=== PATIENT | female | born 1935 | race Caucasian/White ===

== ENCOUNTER → 2016-04-21 | Outpatient (CLI) | payer MEDICARE ==
[~2016-04-21] MED LIST: ALPR0.5T PO; ASPI-875 PO; ATOR20TA66 PO; ATRV10T PO; CEPH500C PO; DULO30CA PO; EST45C VG; ESTR42.52 VG; HYDR-1435 PO; LOSA1TAB15 PO; MTF500T PO; MTP25TSR PO; MULT-974 PO; NAPR220T76 PO; SULF1TAB38 PO
--- OUTSIDE RECORDS SUMMARY | 2016-04-21 13:47 | XMS REPORT | Continuity of Care Document ---
Author Author [facility] Organization [facility] Address Unknown Phone Unavailable Care Team Providers Care Numberer And Wirer Name Role Phone HALLEY WALKER MD PCP Insurance Providers Payer Name Policy Number Subscriber Name Relationship [employer] Medicare [id number] Leah Banerjee 18 Self / Same As Patient [employer] [facility] Supp [id number] Leah Banerjee 18 Self / Same As Patient Advance Directives Directive Response Recorded Date/Time Advance Directives No 06/27/14 7:29am Health Care Power of Curing Room Worker No 06/27/14 7:29am Organ Donor No 06/27/14 7:29am Resuscitation Status Full Code 06/27/14 7:29am Problems Medical Problems Problem Onset Date Status Contusion of back Unknown Active Contusion of chest Unknown Active Lumbar sprain Unknown Active Medications Medication Dose Route Sig Days/Qty Instructions Order Date Discontinued Date Status Trimethoprim/Sulfamethoxazole 1 Ea PO TWICE A DAY 14 Qty 03/12/13 Discontinued Cephalexin Monohydrate (Keflex) 500 Mg PO FOUR TIMES DAILY 7 Days 03/1907/03/13 Discontinued Duloxetine HCl 30 Mg PO TWICE A DAY 07/03/13 Active Estradiol 0.5 Gm VG TWICE WEEKLY 07/03/13 Active Losartan/Hydrochlorothiazide 1 Tab PO DAILY 100-25MG TABLET 07/03/13 Active Estrogens Conjugated 0.5 Gm VG TWICE WEEKLY 07/03/13 Active Metoprolol Succinate 25 Mg PO DAILY 07/03/13 Active Naproxen Sodium 220 Mg PO DAILY 07/03/13 Active Atorvastatin Calcium 10 Mg PO BEDTIME 07/03/13 07/03/13 Discontinued Multivitamin 1 Tab PO DAILY 07/03/13 Active Alprazolam 0.5 Mg PO TWICE A DAY PRN ANXIETY 07/03/13 Active Hydrocodone Bit/Acetaminophen 1-2 Tab PO EVERY 8HRS PRN PAIN NEEDED FOR PAIN 07/03/13 Active Aspirin 162 Mg PO DAILY 07/03/13 Active Metformin HCl (Glucophage) 500 Mg PO TWICE A DAY WITH MEALS 07/03/13 Active Atorvastatin Calcium 10 Mg PO BEDTIME TAKES 1/2 (20MG) TABLET 07/03/13 Active Social History Social History Problem Response Recorded Date/Time Alcohol Use Denies Use 03/12/2013 4:54pm Recreational Drug Use No 03/12/2013 4:54pm Recent Foreign Travel No 06/27/2014 7:29am Hospital Discharge Instructions No hospital discharge instructions. Plan of Care No plan of care. Functional Status No functional status results. Allergies, Adverse Reactions, Alerts Allergen Type Severity Reaction Status Last Updated No Known Drug Allergies Active 03/12/13 Immunizations Name Given Type Date of Pneumonia Vaccine 07/03/09 Historical Date of Influenza Vaccine 12/11/12 Historical Vital Signs Acute Vital Signs Vital Response Date/Time Temperature (Fahrenheit) 97.9 degrees F (97.6 - 99.5) Temperature (Calculated Celsius) 36.82233 degrees C (36.4 - 37.5) Temperature Source Tympanic Pulse Rate (adult) 77 bpm (60 - 90) Respiratory Rate 20 bpm (12 - 24) O2 Sat by Pulse Oximetry 94 % (88 - 100) Blood Pressure 133/75 mm Hg Pain Pain Intensity 3 Height (Feet) 5 feet Height (Inches) 5.00 inches Height (Calculated Centimeters) 165.069352 cm Weight (Pounds) 205 pounds Weight (Calculated Grams) 19795.437 gm Weight (Calculated Kilograms) 92.871149 kilograms Calculated BMI 34.11 Results No known relevant diagnostic tests, laboratory data and/or discharge summary. Procedures No known history of procedures. Encounters Encounter Location Date/Time Registered Clinic [facility] 06/27/14 7:16am Registered Clinic [facility] 06/20/14 7:12am
--- NOTE | 2016-04-21 19:16 | Diagnostic Imaging Report ---
EXAMINATION: Right breast ultrasound. INDICATION: Pain in the right axilla. FINDINGS: The area of pain was scanned with surrounding tissue with no underlying abnormality seen. IMPRESSION: Negative study. Clinical followup recommended. ACR BI-RADS Category 1: Negative. Result letter will be mailed to the patient. Note: At least 10% of breast cancer is not imaged by mammography. Dictated by: Dictated on workstation # [id number]
== END ==
LOC: RAD 13:44
PROVIDERS: ATTEND Internal Medicine
DX: N64.4 Mastodynia (principal)

== ENCOUNTER → 2016-08-31 | Outpatient (CLI) | payer MEDICARE | LOC: CARD 10:03 | PROVIDERS: ATTEND Physician Assistant | DX: I25.10 Atherosclerotic heart disease of native coronary artery without angina pectoris (principal); E78.2 Mixed hyperlipidemia; I10 Essential (primary) hypertension; R00.2 Palpitations | CPT/HCPCS: 93306 ==

== ENCOUNTER → 2017-01-23 | Outpatient (CLI) | payer MEDICARE ==
--- NOTE | 2017-01-24 10:52 | Diagnostic Imaging Report ---
Bilateral screening mammogram 2D views with tomosynthesis The current study was also evaluated with a Computer Aided Detection (CAD) system. INDICATION: Screening. No current complaints stated on the questionnaire. COMPARISON: 01/22/16. FINDINGS: The breasts are composed of heterogeneously dense parenchyma which may decrease mammographic sensitivity. Benign-appearing calcifications are seen. Allowing for technique and positional differences, no suspicious change is seen. IMPRESSION: Dense breasts with no definite change. ACR BI-RADS Category 2: Benign findings. Result letter will be mailed to the patient. Note: At least 10% of breast cancer is not imaged by mammography. Dictated by: Dictated on workstation # [id number]
== END ==
LOC: RAD 09:31
PROVIDERS: ATTEND Internal Medicine
DX: Z12.31 Encounter for screening mammogram for malignant neoplasm of breast (principal)
CPT/HCPCS: 77067

== ENCOUNTER → 2017-10-11 | Outpatient (CLI) | payer MEDICARE ==
[~2017-10-11] MED LIST changes: +REGADENOSON 0.4 MG/5 ML SYR (LEXISCAN) IV ONE
[2017-10-11] MEDS: CATHETER FLUSH 10 ML SYR IV PRN ×2 (11:33→13:12)
[2017-10-11 13:06] VITALS: BP 154/77
--- NOTE | 2017-10-11 18:38 | STRESS TEST ---
DATE OF SERVICE: 10/11/2017 LEXISCAN MYOVIEW STRESS TEST REPORT Baseline heart rate is 68. Baseline blood pressure 154/77. Baseline EKG is sinus rhythm with no ischemic changes. SUMMARY: The patient was injected with 10.27 mCi of technetium-99 Myoview and the resting images were obtained. Then, the patient received 0.4 mg of Lexiscan followed by 28.9 mCi of technetium-99 Myoview. Throughout the test, there were no EKG changes. The resting and stress images were reviewed and compared in the short axis, horizontal long axis, and vertical long axis views. Review of the images showed good radiotracer uptake with no ischemia or infarction on SPECT images. SSS is 0, TID value is 1.03, probably abnormally elevated due to the small left ventricle. On the gated images, the left ventricle appeared to be small in size with normal contractility. Calculated ejection fraction 83%. CONCLUSION: 1. The patient tolerated Lexiscan well. 2. No ischemia or infarction on SPECT images. 3. Small left ventricle with normal contractility. Calculated ejection fraction 83%. Job ID: [id number] DocumentID: [id number] Dictated Date: 10/11/2017 15:49:22 Ampoule Inspector Date: 10/11/2017 18:38:24 Dictated By: TAMIA RICO MD
== END ==
LOC: CARD 11:06
PROVIDERS: ATTEND Internal Medicine Cardiovascular Disease
DX: I25.10 Atherosclerotic heart disease of native coronary artery without angina pectoris (principal); R07.89 Other chest pain; E78.5 Hyperlipidemia, unspecified; R00.2 Palpitations; E11.9 Type 2 diabetes mellitus without complications
CPT/HCPCS: 78452; 93017

== ENCOUNTER → 2018-03-28 | Outpatient (CLI) | payer MEDICARE ==
[~2018-03-28] MED LIST changes: -REGADENOSON 0.4 MG/5 ML SYR (LEXISCAN) IV ONE
--- NOTE | 2018-03-28 15:45 | Diagnostic Imaging Report ---
INDICATION: Chronic neck pain. COMPARISON: None. FINDINGS: Three views of the cervical column demonstrate normal alignment. There is no subluxation or fracture. [id number] degenerative change seen throughout the disc spaces and facet joints. There is no osseous lesion. IMPRESSION: [id number] diffuse degenerative changes. Dictated by: Dictated on workstation # [id number]
--- NOTE | 2018-03-28 15:50 | Diagnostic Imaging Report ---
INDICATION: Chronic back and hip pain. COMPARISON: None. FINDINGS: Three views of the sacrum and coccyx demonstrate normal alignment. There is no osseous lesion or fracture. SI joints are symmetric. IMPRESSION: Unremarkable sacrum and coccyx. Dictated by: Dictated on workstation # [id number]
--- NOTE | 2018-03-28 15:52 | Diagnostic Imaging Report ---
INDICATION: Mid back pain. COMPARISON: None. FINDINGS: Three views of the thoracic column demonstrate normal alignment. There is no subluxation or fracture. Minimal to mild diffuse degenerative disc disease is present. 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 There is no osseous lesion. IMPRESSION: Minimal to mild diffuse degenerative changes. Dictated by: Dictated on workstation # [id number]
--- NOTE | 2018-03-28 15:53 | Diagnostic Imaging Report ---
INDICATION: Low back pain. COMPARISON: None. FINDINGS: Three views of the lumbar column demonstrate normal alignment. There is no subluxation or fracture. Mild degenerative changes are seen throughout the disc spaces and facet joints. There is no osseous lesion. IMPRESSION: Mild diffuse degenerative changes. Dictated by: Dictated on workstation # [id number]
== END ==
LOC: RAD 11:18
PROVIDERS: ATTEND Nurse Practitioner
DX: M47.816 Spondylosis without myelopathy or radiculopathy, lumbar region (principal); M54.2 Cervicalgia; M53.3 Sacrococcygeal disorders, not elsewhere classified; M54.6 Pain in thoracic spine
CPT/HCPCS: 72040; 72072; 72100; 72220

== ENCOUNTER → 2018-11-22 | Outpatient (CLI) | payer MEDICARE | LOC: CARD 13:27 | PROVIDERS: ATTEND Internal Medicine Cardiovascular Disease | DX: I27.20 Pulmonary hypertension, unspecified (principal); G89.4 Chronic pain syndrome; I25.10 Atherosclerotic heart disease of native coronary artery without angina pectoris; E11.9 Type 2 diabetes mellitus without complications; I10 Essential (primary) hypertension; E78.5 Hyperlipidemia, unspecified | CPT/HCPCS: 93306 ==

== ENCOUNTER → 2019-05-24 | Outpatient (CLI) | payer MEDICARE ==
--- NOTE | 2019-05-24 09:58 | Diagnostic Imaging Report ---
INDICATION: Routine screening. COMPARISON: 04/02/2018 and 01/23/2017. TECHNIQUE: 2D and 3D bilateral screening mammography was performed with CAD. FINDINGS: Both breasts remain heterogeneously dense, limiting the sensitivity of mammography. Benign calcifications are identified in both breasts. The intraparenchymal lymph node in the upper outer right breast is again noted. No spiculated mass or malignant appearing microcalcifications are seen. The axillae are unremarkable. IMPRESSION: No mammographic features suspicious for malignancy are identified. ACR BI-RADS Category 2: Benign findings. Result letter will be mailed to the patient. Note: At least 10% of breast cancer is not imaged by mammography. Dictated by: Dictated on workstation # [id number]
== END ==
LOC: RAD 08:16
PROVIDERS: ATTEND Nurse Practitioner
DX: Z12.31 Encounter for screening mammogram for malignant neoplasm of breast (principal)
CPT/HCPCS: 77067

== ENCOUNTER → 2021-08-02 | Outpatient (CLI) | payer MEDICARE ==
--- NOTE | 2021-08-02 10:31 | Diagnostic Imaging Report ---
KNEE, RIGHT, 3 VIEWS INDICATION: Right knee pain COMPARISON: None available. TECHNIQUE: 3 views of the right knee FINDINGS: Tricompartmental degenerative arthritis is characterized by osteophyte formation and nonuniform joint space narrowing. No knee joint effusion. No acute fracture. No mineralized intra-articular bodies. IMPRESSION: 1. No acute osseous abnormality about the right knee. 2. Moderate tricompartmental osteoarthritis. Dictated by: Dictated on workstation # [id number]
--- NOTE | 2021-08-02 10:34 | Diagnostic Imaging Report ---
PROCEDURE: CT head and maxillofacial without contrast. TECHNIQUE: Multiple contiguous axial images were obtained through the head and facial bones without the use of intravenous contrast. Auto Exposure Controls were utilized during the CT exam to meet ALARA standards for radiation dose reduction. INDICATION: Fall. Facial pain and bruising. COMPARISON: 03/12/2013. FINDINGS: A few small patchy regions of hypoattenuation in the deep white matter likely reflective of sequela of microvascular disease. There are no findings of territorial loss of velasquez-white differentiation or vasogenic edema. There is no acute intracranial hemorrhage. There is no intracranial mass effect or shift. There is no hydrocephalus. There is no abnormal extra-axial collection. Basal cisterns are patent. The mastoid air cells are clear. There are no findings of a calvarial fracture. The CT of the face demonstrates no evidence of a fracture of the bony orbit. The intraorbital contents are unremarkable. There has been prior ocular lens replacement. Some slight irregularity of the nasal bones which may reflect a nondisplaced nasal bone fracture. There appears to be some minimal adjacent soft tissue swelling. There is no blood within the paranasal sinuses. There are no findings of a fracture of the maxilla. Zygomatic arches are intact. There is no fracture of the pterygoids. There are arthritic changes at the temporal mandibular joints. There is no TMJ dislocation or acute mandibular fracture. The visualized portion of the upper cervical spine demonstrates normal alignment with normal relationships of the craniocervical junction. IMPRESSION: 1. No CT findings of intracranial hemorrhage or of an acute intracranial abnormality. There appear to be some minimal microvascular changes in the deep white matter. 2. Questionable nondisplaced fracture/buckling of the nasal bones. No other evidence of a facial fracture demonstrated. The orbital contents are unremarkable. There is no blood within the paranasal sinuses. Dictated by: Dictated on workstation # [id number]
== END ==
LOC: RAD 09:47
PROVIDERS: ATTEND Internal Medicine
DX: M25.861 Other specified joint disorders, right knee (principal); W19.XXXA Unspecified fall, initial encounter
CPT/HCPCS: 70450; 70486; 73562

== ENCOUNTER → 2021-08-05 | Outpatient (CLI) | payer MEDICARE ==
--- NOTE | 2021-08-05 15:29 | Diagnostic Imaging Report ---
INDICATION: Routine screening. COMPARISON is made with prior mammograms from 05/24/2019 and 04/02/2018. 2-D and 3-D bilateral screening mammography was performed with CAD. Both breasts are heterogeneously dense, limiting the sensitivity of mammography. The parenchymal pattern is stable. No mass or malignant-appearing microcalcifications are seen. There are scattered benign calcifications in both breasts. Axillae are unremarkable. IMPRESSION: BI-RADS Category 2 No mammographic features suspicious for malignancy are identified. Dictated by: Dictated on workstation # [id number]
== END ==
LOC: RAD 10:08
PROVIDERS: ATTEND Nurse Practitioner Family
DX: Z12.31 Encounter for screening mammogram for malignant neoplasm of breast (principal)
CPT/HCPCS: 77063; 77067

== ENCOUNTER 2021-11-02 14:20 | Emergency (ER) | payer MEDICARE ==
[~2021-11-02] VITALS: Ht 165 cm; Wt 95.0 kg
[2021-11-02 15:05] LABS: BASOPHILS % (AUTO) 0 % (0-10); EOSINOPHILS # (AUTO) 0.2 10^3/uL (0.0-0.3); EOSINOPHILS % (AUTO) 2 % (0-10); HEMATOCRIT 40 % (35-52); LYMPHOCYTES % (AUTO) 23 % (12-44); MEAN CORPUSCULAR HEMOGLOBIN 32 pg (25-34); MEAN CORPUSCULAR HGB CONC 33 g/dL (32-36); MEAN CORPUSCULAR VOLUME 97 fL (80-99); MEAN PLATELET VOLUME 9.9 fL (9.0-12.2); MONOCYTES # (AUTO) 0.7 10^3/uL (0.0-1.0); MONOCYTES % (AUTO) 8 % (0-12); NEUTROPHILS # (AUTO) 5.6 10^3/uL (1.8-7.8); NEUTROPHILS % (AUTO) 66 % (42-75); PLATELET COUNT 230 10^3/uL (130-400); WHITE BLOOD COUNT 8.5 10^3/uL (4.3-11.0)
--- NOTE | 2021-11-02 15:05 | ED General ---
General Chief Complaint: General Problems/Pain Stated Complaint: PCP SENT REQUESTING BLOODWORK THROUGH ER Nursing Triage Note: PT STATES SHE HAS NOT BEEN FEELING WELL FOR ABOUT 2 WEEKS, NEG COVID TEST ABOUT 10 DAYS AGO, HIGH LACTIC ACID 2-3 DAYS AGO SO PT WAS SENT TO THE ER. PT FELL OUT OF BED 2-3 DAYS AGO, DENIES GETTING HURT JUST COULDN'T GET UP Source of Information: Patient, Family (Daughter) Exam Limitations: No Limitations (JOSE WILDE) History of Present Illness Date Seen by Provider: Nov 02, 2021 Time Seen by Provider: 14:40 Initial Comments Patient ER by private conveyance from home with chief complaint that for at least the last 2 weeks she has not been feeling well. She is had fatigue, malaise. She is not had any fevers or chills. She had a couple days with nausea and a couple episodes of diarrhea. She has had a negative COVID test 10 days ago. She does not recall what all was done but she had some labs done yesterday in the clinic at Dr. Walker's office and was told she needed to come in today because her lactate was high. The note that accompanies her mentions that she was here in follow-up yesterday because she was having generalized not feeling well. She had been put on Augmentin on the Monday for an elevated white blood cell count. On Monday night she reportedly fell out of bed while trying to go to the bathroom. She denies striking her head and reports no pain at that time. She states that her legs just gave out. Her vitals yesterday were 97.7 Fahrenheit, 83 heart rate, 120/60 blood pressure, 95% on room air. Yesterday the plan as documented was to repeat CBC, CMP and continue to encourage oral fluids and continue with the Augmentin. We will determine whether the patient needs IV fluids or change in medications. (JOSE WILDE) Allergies and Home Medications Allergies Coded Allergies: No Known Drug Allergies (Unverified , 03/12/13) Patient Home Medication List Home Medication List Reviewed: Yes (JOSE WILDE) Alprazolam (Xanax) 0.5 Mg Tablet, 0.5 MG PO BID PRN for ANXIETY, (Reported) Entered as Reported by: NUZHAT DAWSON on 07/03/13 1042 Aspirin (Nason Aspirin) 81 Mg Tablet.dr, 162 MG PO DAILY, (Reported) Entered as Reported by: NUZHAT DAWSON on 07/03/13 104 Atorvastatin Calcium (Atorvastatin Calcium) 20 Mg Tablet, 10 MG PO HS, (Reported) Entered as Reported by: NUZHAT DAWSON on 07/03/13 105 Duloxetine Hcl (Cymbalta) 30 Mg Capsule.dr, 30 MG PO BID, (Reported) Entered as Reported by: NUZHAT DAWSON on 07/03/13 104 Estradiol (Estrace Vaginal Cream) 42.5 Gm Cream.appl, 0.5 GM VG TWICE WEEKLY, (Reported) Entered as Reported by: NUZHAT DAWSON on 07/03/13 104 Estrogens Conjugated (Premarin Vag Cream) 45 Gm Cr, 0.5 GM VG TWICE WEEKLY, (Reported) Entered as Reported by: NUZHAT DAWSON on 07/03/13 104 Hydrocodone Bit/Acetaminophen (Hydrocodone-Apap 10-325 Mg Tab) 1 Tab Tablet, 1-2 TAB PO Q8H PRN for PAIN, (Reported) Entered as Reported by: NUZHAT DAWSON on 07/03/13 104 Losartan/Hydrochlorothiazide (Hyzaar 100-25 Tablet) 1 Tab Tablet, 1 TAB PO DAILY, (Reported) Entered as Reported by: NUZHAT DAWSON on 07/03/13 104 Metformin Hcl (Metformin 500 Mg) 500 Mg Tablet, 500 MG PO BID WITH MEALS, (Reported) Entered as Reported by: NUZHAT DAWSON on 07/03/13 104 Metoprolol Succinate (Toprol Xl 25MG) 25 Mg Tab.sr.24h, 25 MG PO DAILY, (Reported) Entered as Reported by: NUZHAT DAWSON on 07/03/13 104 Multivitamin (Multi Vitamin Daily) 1 Each Tablet, 1 TAB PO DAILY, (Reported) Entered as Reported by: NUZHAT DAWSON on 07/03/13 104 Naproxen Sodium (Aleve) 220 Mg Tablet, 220 MG PO DAILY, (Reported) Entered as Reported by: NUZHAT DAWSON on 07/03/13 104 Review of Systems Review of Systems Constitutional: No chills, No diaphoresis EENTM: No ear discharge, No ear pain Respiratory: No cough, No short of breath Cardiovascular: No chest pain, No edema Gastrointestinal: see HPI; No abdominal pain, No constipation; diarrhea, nausea Genitourinary: No discharge, No dysuria Musculoskeletal: No back pain, No joint pain (JOSE WILDE) All Other Systems Reviewed Negative Unless Noted: Yes (JOSE WILDE) Past Hwdcsyo-Tqtlsr-Nrmvqm Hx Patient Social History Tobacco Use?: No Use of E-Cig and/or Vaping dev: No Substance use?: No Alcohol Use?: No (JOSE WILDE) Immunizations Up To Date COVID19 Vaccine 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 oz. 92.851259nl; 34.00 BMI Method:Estimated General Appearance: No Apparent Distress, WD/WN Eyes: Bilateral Eye Normal Inspection, Bilateral Eye PERRL, Bilateral Eye EOMI HEENT: PERRL/EOMI, TMs Normal, Normal ENT Inspection, Pharynx Normal, Moist Mucous Membranes Neck: Full Range of Motion, Normal Inspection, Non Tender Respiratory: Lungs Clear, Normal Breath Sounds, No Accessory Muscle Use, No Respiratory Distress Cardiovascular: Regular Rate, Rhythm, Normal Peripheral Pulses, Other (Chronic bilateral lymphedema.) Gastrointestinal: Normal Bowel Sounds, No Organomegaly, No Pulsatile Mass, Non Tender, Soft, Other (No mesenteric signs, nonsurgical abdomen on exam.) Extremity: Normal Capillary Refill, Normal Inspection Neurologic/Psychiatric: Alert, Oriented x3, No Motor/Sensory Deficits Skin: Normal Color, Warm/Dry (JOSE WILDE) Focused Exam Lactate Level 11/02/21 14:45: Lactic Acid Level 4.23*H 11/02/21 17:45: Lactic Acid Level 3.65*H (JAMES EPSTEIN MD) Lactic Acid Level Laboratory Tests Test 11/02/21 14:45 11/02/21 17:45 Lactic Acid Level 4.23 MMOL/L (0.50-2.00) *H 3.65 MMOL/L (0.50-2.00) *H (JAMES EPSTEIN MD) Progress/Results/Core Measures Suspected Sepsis SIRS Temperature: Pulse: 86 Respiratory Rate: 11 Laboratory Tests 11/02/21 14:45: White Blood Count 8.5 Blood Pressure 145 /65 Mean: 91 11/02/21 14:45: Lactic Acid Level 4.23*H 11/02/21 17:45: Lactic Acid Level 3.65*H Laboratory Tests 11/02/21 14:45: Creatinine 0.95, Platelet Count 230, Total Bilirubin 0.4 (JOSE WILDE) Results/Orders Lab Results Laboratory Tests Test 11/02/21 14:45 11/02/21 15:03 11/02/21 17:45 11/02/21 18:45 Range/Units White Blood Count 8.5 4.3-11.0 10^3/uL Red Blood Count 4.09 3.80-5.11 10^6/uL Hemoglobin 13.0 11.5-16.0 g/dL Hematocrit 40 35-52 % Mean Corpuscular Volume 97 80-99 fL Mean Corpuscular Hemoglobin 32 25-34 pg Mean Corpuscular Hemoglobin Concent 33 32-36 g/dL Red Cell Distribution Width 13.1 10.0-14.5 % Platelet Count 230 130-400 10^3/uL Mean Platelet Volume 9.9 9.0-12.2 fL Immature Granulocyte % (Auto) 1 % Neutrophils (%) (Auto) 66 42-75 % Lymphocytes (%) (Auto) 23 12-44 % Monocytes (%) (Auto) 8 0-12 % Eosinophils (%) (Auto) 2 0-10 % Basophils (%) (Auto) 0 0-10 % Neutrophils # (Auto) 5.6 1.8-7.8 10^3/uL Lymphocytes # (Auto) 2.0 1.0-4.0 10^3/uL Monocytes # (Auto) 0.7 0.0-1.0 10^3/uL Eosinophils # (Auto) 0.2 0.0-0.3 10^3/uL Basophils # (Auto) 0.0 0.0-0.1 10^3/uL Immature Granulocyte # (Auto) 0.1 0.0-0.1 10^3/uL Sodium Level 143 135-145 MMOL/L Potassium Level 3.6 3.6-5.0 MMOL/L Chloride Level 104 98-107 MMOL/L Carbon Dioxide Level 26 21-32 MMOL/L Anion Gap 13 5-14 MMOL/L Blood Urea Nitrogen 23 H 7-18 MG/DL Creatinine 0.95 0.60-1.30 MG/DL Estimat Glomerular Filtration Rate 59 BUN/Creatinine Ratio 24 Glucose Level 129 H 70-105 MG/DL Lactic Acid Level 4.23 *H 3.65 *H 0.50-2.00 MMOL/L Calcium Level 9.3 8.5-10.1 MG/DL Corrected Calcium 9.9 8.5-10.1 MG/DL Total Bilirubin 0.4 0.1-1.0 MG/DL Aspartate Amino Transf (AST/SGOT) 14 5-34 U/L Alanine Aminotransferase (ALT/SGPT) 12 0-55 U/L Alkaline Phosphatase 55 40-136 U/L C-Reactive Protein High Sensitivity 5.25 H 0.00-0.50 MG/DL Total Protein 6.8 6.4-8.2 GM/DL Albumin 3.3 3.2-4.5 GM/DL Influenza Type A (RT-PCR) Not Detected Not Detecte Influenza Type B (RT-PCR) Not Detected Not Detecte SARS-CoV-2 RNA (RT-PCR) Not Detected Not Detecte Urine Color YELLOW Urine Clarity SL CLOUDY Urine pH 6.0 5-9 Urine Specific [place] 1.025 H 1.016-1.022 Urine Protein NEGATIVE NEGATIVE Urine Glucose (UA) NEGATIVE NEGATIVE Urine Ketones NEGATIVE NEGATIVE Urine Nitrite NEGATIVE NEGATIVE Urine Bilirubin NEGATIVE NEGATIVE Urine Urobilinogen 0.2 < = 1.0 MG/DL Urine Leukocyte Esterase 1+ H NEGATIVE Urine RBC (Auto) NEGATIVE NEGATIVE Urine RBC NONE /HPF Urine WBC 2-5 /HPF Urine Squamous Epithelial Cells 0-2 /HPF Urine Crystals NONE /LPF Urine Bacteria NEGATIVE /HPF Urine Casts NONE /LPF Urine Mucus NEGATIVE /LPF Urine Culture Indicated NO Test 11/02/21 19:05 Range/Units (JAMES EPSTEIN MD) My Orders Orders - JAMES EPSTEIN MD Procalcitonin (Pct) (11/02/21 18:53) Vitamin D 25-Hydroxy (11/02/21 19:22) Thyroid Analyzer (11/02/21 19:22) (JAMES EPSTEIN MD) Vital Signs/I&O 11/02/21 11/02/21 14:35 15:35 Temp 36.7 Pulse 86 77 86 84 Resp 11 B/P (MAP) 145/65 (91) 122/62 (82) 135/72 (93) 127/64 (85) Pulse Ox 96 O2 Delivery Room Air (JAMES EPSTEIN MD) Vital Signs/I&O Capillary Refill : Less Than 3 Seconds (JOSE WILDE) Blood Pressure Mean: 91 Progress Note #1: Time: 15:13 Progress Note Aseptic vital signs, nonconcerning abdominal exam. The patient states she did not have a urine test and we do not have any results. It is unclear why a lactic acid was obtained or why she was started on antibiotics. Will repeat some labs and get a chest x-ray as well as urinalysis. We will repeat a COVID swab and influenza test. Progress Note #2: Time: 18:44 Progress Note Multiple opportunities were given to the patient to produce a urine specimen. The patient's been given 2 L of fluids. Will offer her another attempt at a straight cath. Care of the patient transferred to Dr. Preciado pending urinalysis. (JOSE WILDE) Progress Note : Time: 19:26 Progress Note Care of this patient was assumed from Dr. Wilde after checkout and verbal report at shift change. Patient had a urine specimen collected by straight catheter. There was no compelling evidence for urinary tract infection. Urine culture will be obtained as a backup. No source of infection was identified today. There was a minimal elevation in CRP and no leukocytosis or fever. The elevated lactic acid is likely related to hydration status and use of diuretics and metformin. Patient admittedly does not drink very many fluids and her family has a hard time encouraging her to drink. She and her family elaborated that her symptoms started on October 18 when she developed 3 days of vomiting. She has generally not felt well since then but can not describe any specific symptoms such as focal pain, shortness of breath, cough, fever, or chest pain. From an ER perspective, she is stable for discharge after receiving 2 L of IV fluid. Her son did comment that she ambulated much more briskly to the restroom after receiving IV fluids. He has not seen her walk that well for several days. 2 8 and her follow-up, I am also ordering a thyroid analyzer and vitamin D 25 [place] level. I have also advised that she review her medications with her primary care provider as medication adverse effects may be contributing to her malaise. There is also noted that she had received a prescription for dexamethasone on October 18 preceding her leukocytosis on October 29. Perhaps she was not feeling well because she was having withdraw off of the steroids and her leukocytosis could have been related to steroid use rather than infection. Alternatively, the Augmentin she completed may have treated an infection that is now not evid ent. Perhaps she had a viral illness that has caused her symptoms as well. Vital signs and orthostatic blood pressures were unremarkable. See discharge instructions for further discussion. (JAMES EPSTEIN MD) Diagnostic Imaging Diagonstic Imaging: Xray Plain Films/CT/US/NM/MRI: chest Comments [facility] [place], [place] NAME: MANDY GÓMEZ [facility] REC#: [id number] PT STATUS: REG ER : 1935 PHYSICIAN: JOSE WILDE MD ADMIT DATE: 11/02/21/ER Draft Date of Exam:11/02/21 CHEST 1 VIEW, AP/PA ONLY Indication: Recent fall. Time of Exam: 3:58 PM Correlation is made with prior chest from 07/03/2013. Findings: The heart size is normal. The pulmonary vascularity is unremarkable. The lungs are clear. No infiltrate, effusion or pneumothorax is detected. Impression: No acute cardiopulmonary process is detected. Dictated on workstation # [id number] Dict: 11/02/21 1613 Trans: 11/02/21 1614 CVB [id number] Interpreted by: SIVAKUMAR RAY MD Electronically signed by: Reviewed: Reviewed by Me Comments [facility] [place] NAME: MANDY GÓMEZ [facility] REC#: [id number] PT STATUS: REG ER : 1935 PHYSICIAN: JOSE WILDE MD ADMIT DATE: 11/02/21/ER Draft Date of Exam:11/02/21 CT HEAD/CERVICAL SPINE WO PROCEDURE: CT head and CT cervical spine without contrast. TECHNIQUE: Multiple contiguous axial images were obtained through the brain and cervical spine without the use of intravenous contrast. Sagittal and coronal reformations through the cervical spine were then performed. Auto Exposure Controls were utilized during the CT exam to meet ALARA standards for radiation dose reduction. INDICATION: Weakness, tired and fall. Comparison is made with prior head CT from 08/02/2021. CT HEAD: FINDINGS: The ventricles and sulci are consistent with the patient's age. No sulcal effacement or midline shift is identified. No acute intra-axial or extra-axial hemorrhage is detected. Cisterns are patent. Visualized paranasal sinuses are clear. IMPRESSION: No acute intracranial process is detected. CT CERVICAL SPINE: FINDINGS: Curvature and alignment of the cervical spine is normal. No fracture or subluxation is identified. Prevertebral tissues are normal. Odontoid is intact. IMPRESSION: No acute bony abnormality is detected. Dictated on workstation # [id number] Dict: 11/02/21 1624 Trans: 11/02/21 1628 [id number] Interpreted by: SIVAKUMAR RAY MD Electronically signed by: (JOSE WILDE) Transfer of Care Transfer of Care Time: 18:44 Care transferred to: Dr. Preciado (JOSE WILDE) Departure Impression Primary Impression: Malaise Additional Impression: Elevated lactic acid level Disposition: HOME, SELF-CARE Condition: Improved Departure-Patient Inst. Decision time for Depature: 19:32 (JAMES EPSTEIN MD) Referrals: HALLEY WALKER MD (PCP/Family) Primary Care Physician Patient Instructions: Fatigue ED Add. Discharge Instructions: The exact cause of your symptoms and lab findings of increased lactic acid is uncertain. You may have had an infection (viral or bacterial) that has since resolved and you are still recovering. You may be experiencing a medication adverse effect, and you should review your medications with your primary care doctor. Some labs have been ordered from the ER that need to be reviewed by your primary care provider including thyroid studies, vitamin D level, and a urine culture. The results of the studies may help explain why you are feeling unwell. Hydration status likely plays a role in how you are feeling. Increase your clear liquid intake and try to minimize caffeinated beverages. You should be drinking enough that you feel a need to urinate several times a day and your urine should be light yellow to clear in color. If your urine appears concentrated, cloudy, or dark, you need to be drinking more clear liquids. Please call with questions or concerns. Return to the ER if you have worsening symptoms despite following these instructions. Keep your follow-up appointment with Dr. Walker. Call the clinic tomorrow and ask if there are any further instructions you should be following while awaiting your follow-up appointment. All discharge instructions reviewed with patient and/or family. Voiced understanding. Copy Copies To 1: HALLEY WALKER MD, TITUS J Nov 02, 2021 15:05 JAMES EPSTEIN MD Nov 02, 2021 19:25
[2021-11-02 15:10] LABS: ALBUMIN 3.3 GM/DL (3.2-4.5); POTASSIUM 3.6 MMOL/L (3.6-5.0)
[2021-11-02 15:12] LABS: CALCIUM 9.3 MG/DL (8.5-10.1)
[2021-11-02 15:13] LABS: TOTAL PROTEIN 6.8 GM/DL (6.4-8.2)
[2021-11-02 15:14] LABS: BILIRUBIN,TOTAL 0.4 MG/DL (0.1-1.0)
[2021-11-02 15:17] LABS: CREATININE SERUM 0.95 MG/DL (0.60-1.30)
[2021-11-02 15:35] VITALS: BP_SYST 122; BP_SYST 127; BP_SYST 135; BP_DIAS 62; BP_DIAS 64; BP_DIAS 72
[2021-11-02] MEDS ORDERED: NS IV 1000 ML 1,000 ML IV SCH ×2 (15:45→17:45)
--- NOTE | 2021-11-02 16:14 | Diagnostic Imaging Report ---
Indication: Recent fall. Time of Exam: 3:58 PM Correlation is made with prior chest from 07/03/2013. Findings: The heart size is normal. The pulmonary vascularity is unremarkable. The lungs are clear. No infiltrate, effusion or pneumothorax is detected. Impression: No acute cardiopulmonary process is detected. Dictated by: Dictated on workstation # [id number]
--- NOTE | 2021-11-02 16:29 | Diagnostic Imaging Report ---
PROCEDURE: CT head and CT cervical spine without contrast. TECHNIQUE: Multiple contiguous axial images were obtained through the brain and cervical spine without the use of intravenous contrast. Sagittal and coronal reformations through the cervical spine were then performed. Auto Exposure Controls were utilized during the CT exam to meet ALARA standards for radiation dose reduction. INDICATION: Weakness, tired and fall. Comparison is made with prior head CT from 08/02/2021. CT HEAD: FINDINGS: The ventricles and sulci are consistent with the patient's age. No sulcal effacement or midline shift is identified. No acute intra-axial or extra-axial hemorrhage is detected. Cisterns are patent. Visualized paranasal sinuses are clear. IMPRESSION: No acute intracranial process is detected. CT CERVICAL SPINE: FINDINGS: Curvature and alignment of the cervical spine is normal. No fracture or subluxation is identified. Prevertebral tissues are normal. Odontoid is intact. IMPRESSION: No acute bony abnormality is detected. Dictated by: Dictated on workstation # [id number]
[2021-11-02 18:53] LABS: BILIRUBIN,URINE NEGATIVE (NEGATIVE); CLARITY,URINE SL CLOUDY; COLOR,URINE YELLOW; GLUCOSE, URINE (UA) NEGATIVE (NEGATIVE); KETONES,URINE NEGATIVE (NEGATIVE); LEUKOCYTE ESTERASE ,URINE 1+ (NEGATIVE); NITRITE,URINE NEGATIVE (NEGATIVE); PROTEIN,URINE NEGATIVE (NEGATIVE)
[2021-11-02 19:03] LABS: BACTERIA,URINE NEGATIVE /HPF; SQUAMOUS EPITHELIAL CELL,UR 0-2 /HPF
== END 2021-11-02 19:51 | disposition home or self-care (01) ==
LOC: EDUNIT# 14:20 → ER 14:22
DX: R53.81 Other malaise (principal); R74.02 Elevation of levels of lactic acid dehydrogenase [LDH]; R79.82 Elevated C-reactive protein (CRP); Z20.822 Contact with and (suspected) exposure to COVID-19
CPT/HCPCS: 36415; 70450; 71045; 72125; 80053; 81000; 82306; 83605; 84145; 84443; 85025; 86141; 87040; 87088; 87636; 96360; 96361

== ENCOUNTER → 2022-11-28 | Outpatient (CLI) | payer MEDICARE ==
--- NOTE | 2022-11-28 19:40 | Diagnostic Imaging Report ---
Indication: Routine screening. Comparison is made with prior mammograms from 08/05/2021 and 05/24/2019. 2-D and 3-D bilateral screening mammography was performed with CAD. Both breasts are heterogeneously dense, limiting the sensitivity of mammography. There are scattered benign calcifications. No spiculated mass or malignant-appearing microcalcifications are seen. Axillae are unremarkable. IMPRESSION: BI-RADS Category 2 No mammographic features suspicious for malignancy are identified. ACR BI-RADS Category 2: Benign findings. Result letter will be mailed to the patient. Note: At least 10% of breast cancer is not imaged by mammography. Dictated by: Dictated on workstation # [id number]
== END ==
LOC: RAD 14:15
PROVIDERS: ATTEND Internal Medicine
DX: Z12.31 Encounter for screening mammogram for malignant neoplasm of breast (principal)
CPT/HCPCS: 77063; 77067

== ENCOUNTER 2023-02-01 11:32 | Observation (INO) | payer MEDICARE ==
[~2023-02-01] VITALS: Ht 165 cm; Wt 72.7 kg
--- NOTE | 2023-02-01 11:57 | ED Upper Extremity ---
General Chief Complaint: Trauma-Non Activation Stated Complaint: FALL Source: patient, EMS Exam Limitations: no limitations (ISADORA FERRO APRN) History of Present Illness Date Seen by Provider: Feb 01, 2023 Time Seen by Provider: 11:39 Initial Comments 87-year-old female presents to the ER via EMS after a fall. Family found her on the ground with a chest of drawers lying on her left arm. Patient does not remember falling. Patient denies any pain. She denies any head or neck pain. Does report pain with palpation of left upper arm. Family reports that he last saw her yesterday around 5 PM. She reports that she has had some diarrhea recently, she is uncertain for how long or when it started. Family reported to EMS that she was having some confusion yesterday when [employer] was at her house. They also reported some incontinence of her bladder. Patient complaining of burning with urination. Patient alert and oriented to self, place, month, did not know the year. (ISADORA FERRO APRN) Allergies and Home Medications Allergies Coded Allergies: No Known Drug Allergies (Unverified , 03/12/13) Patient Home Medication List Home Medication List Reviewed: Yes (ISADORA FERRO APRN) Alprazolam (Xanax) 0.5 Mg Tablet, 0.5 MG PO BID PRN for ANXIETY, (Reported) Entered as Reported by: NUZHAT DAWSON on 07/03/13 104 Aspirin (Ponce Aspirin) 81 Mg Tablet.dr, 162 MG PO DAILY, (Reported) Entered as Reported by: NUZHAT DAWSON on 07/03/13 104 Atorvastatin Calcium (Atorvastatin Calcium) 20 Mg Tablet, 10 MG PO HS, (Reported) Entered as Reported by: NUZHAT DAWSON on 07/03/13 1052 Duloxetine Hcl (Cymbalta) 30 Mg Capsule.dr, 30 MG PO BID, (Reported) Entered as Reported by: NUZHAT DAWSON on 07/03/13 104 Estradiol (Estrace Vaginal Cream) 42.5 Gm Cream.appl, 0.5 GM VG TWICE WEEKLY, (Reported) Entered as Reported by: NUZHAT DAWSON on 07/03/13 1042 Estrogens Conjugated (Premarin Vag Cream) 45 Gm Cr, 0.5 GM VG TWICE WEEKLY, (Reported) Entered as Reported by: NUZHAT DAWSON on 07/03/13 1042 Hydrocodone Bit/Acetaminophen (Hydrocodone-Apap 10-325 Mg Tab) 1 Tab Tablet, 1-2 TAB PO Q8H PRN for PAIN, (Reported) Entered as Reported by: NUZHAT DAWSON on 07/03/13 1042 Losartan/Hydrochlorothiazide (Hyzaar 100-25 Tablet) 1 Tab Tablet, 1 TAB PO DAILY, (Reported) Entered as Reported by: NUZHAT DAWSON on 07/03/13 104 Metformin Hcl (Metformin 500 Mg) 500 Mg Tablet, 500 MG PO BID WITH MEALS, (Reported) Entered as Reported by: NUHZAT DAWSON on 07/03/13 104 Metoprolol Succinate (Toprol Xl 25MG) 25 Mg Tab.sr.24h, 25 MG PO DAILY, (Reported) Entered as Reported by: NUZHAT DAWSON on 07/03/13 104 Multivitamin (Multi Vitamin Daily) 1 Each Tablet, 1 TAB PO DAILY, (Reported) Entered as Reported by: NUZHAT DAWSON on 07/03/13 104 Naproxen Sodium (Aleve) 220 Mg Tablet, 220 MG PO DAILY, (Reported) Entered as Reported by: NUZHAT DAWSON on 07/03/13 104 Review of Systems Constitutional: see HPI (ISADORA FERRO APRN) Past Arglwfd-Lykxfk-Ppdewi Hx Patient Social History Tobacco Use?: No Substance use?: No Alcohol Use?: No (ISADORA FERRO APRN) Immunizations Up To Date First/Initial COVID19 Vaccinat: YES Second COVID19 Vaccination Ovidio: YES Third COVID19 Vaccination Date: YES (ISADORA FERRO APRN) Past Medical History Surgery/Hospitalization HX: DIABETIC TYPE II, HYSTERECTOMY Reproductive Disorders: No Degenerate Disk Disease Diabetes, Non-Insulin dep Anxiety (ISADORA FERRO APRN) Family Medical History No Pertinent Family Hx (ISADORA FERRO APRN) Physical Exam Vital Signs Vital Signs - First Documented 02/01/23 11:33 Temp 38.0 Pulse 75 Resp 16 B/P (MAP) 161/81 (107) Pulse Ox 98 O2 Delivery Room Air (JAMES EPSTEIN MD) Vital Signs Capillary Refill : (ISADORA FERRO APRN) Height, Weight, BMI Height: 5'5.00" Weight: 203lbs. oz. 92.596250lp; 34.00 BMI Method:Estimated General Appearance: WD/WN, no apparent distress HEENT: PERRL/EOMI, normal ENT inspection, TMs normal Neck: normal inspection (In c-collar) Cardiovascular: regular rate, rhythm Respiratory: lungs clear, normal breath sounds, no respiratory distress, no accessory muscle use Gastrointestinal: normal bowel sounds, non tender, soft Shoulder: non-tender, ecchymosis Elbow/Forearm: normal inspection, non-tender, Left (Tenderness of left upper arm, ecchymosis to left upper arm) Wrist: Yes normal inspection, Yes non-tender Hand: normal inspection, non-tender, Left Neurologic/Psychiatric: 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, alert, normal mood/affect, other (Oriented to self, place, month, disoriented to year) Skin: normal color, warm/dry (ISADORA FERRO APRN) Progress/Results/Core Measures Results/Orders Lab Results Laboratory Tests Test 02/01/23 11:35 02/01/23 11:58 Range/Units White Blood Count 9.2 4.3-11.0 10^3/uL Red Blood Count 4.09 3.80-5.11 10^6/uL Hemoglobin 13.0 11.5-16.0 g/dL Hematocrit 39 35-52 % Mean Corpuscular Volume 95 80-99 fL Mean Corpuscular Hemoglobin 32 25-34 pg Mean Corpuscular Hemoglobin Concent 34 32-36 g/dL Red Cell Distribution Width 13.5 10.0-14.5 % Platelet Count 237 130-400 10^3/uL Mean Platelet Volume 10.1 9.0-12.2 fL Immature Granulocyte % (Auto) 1 % Neutrophils (%) (Auto) 71 42-75 % Lymphocytes (%) (Auto) 22 12-44 % Monocytes (%) (Auto) 6 0-12 % Eosinophils (%) (Auto) 0 0-10 % Basophils (%) (Auto) 0 0-10 % Neutrophils # (Auto) 6.5 1.8-7.8 10^3/uL Lymphocytes # (Auto) 2.0 1.0-4.0 10^3/uL Monocytes # (Auto) 0.6 0.0-1.0 10^3/uL Eosinophils # (Auto) 0.0 0.0-0.3 10^3/uL Basophils # (Auto) 0.0 0.0-0.1 10^3/uL Immature Granulocyte # (Auto) 0.1 0.0-0.1 10^3/uL Sodium Level 141 135-145 MMOL/L Potassium Level 3.0 L 3.6-5.0 MMOL/L Chloride Level 103 98-107 MMOL/L Carbon Dioxide Level 26 21-32 MMOL/L Anion Gap 12 5-14 MMOL/L Blood Urea Nitrogen 15 7-18 MG/DL Creatinine 0.80 0.60-1.30 MG/DL Estimat Glomerular Filtration Rate 72 BUN/Creatinine Ratio 19 Glucose Level 128 H 70-105 MG/DL Calcium Level 8.8 8.5-10.1 MG/DL Corrected Calcium 9.0 8.5-10.1 MG/DL Magnesium Level 1.2 L 1.6-2.4 MG/DL Total Bilirubin 0.6 0.1-1.0 MG/DL Aspartate Amino Transf (AST/SGOT) 16 5-34 U/L Alanine Aminotransferase (ALT/SGPT) 11 0-55 U/L Alkaline Phosphatase 47 40-136 U/L Total Creatine Kinase 127 29-168 U/L Total Protein 7.1 6.4-8.2 GM/DL Albumin 3.8 3.2-4.5 GM/DL TSH [place] Testing 2.68 0.35-4.94 UIU/ML Urine Color YELLOW Urine Clarity CLEAR Urine pH 6.5 5-9 Urine Specific [place] 1.020 1.016-1.022 Urine Protein 1+ H NEGATIVE Urine Glucose (UA) TRACE H NEGATIVE Urine Ketones 3+ H NEGATIVE Urine Nitrite NEGATIVE NEGATIVE Urine Bilirubin NEGATIVE NEGATIVE Urine Urobilinogen 0.2 < = 1.0 MG/DL Urine Leukocyte Esterase NEGATIVE NEGATIVE Urine RBC (Auto) TRACE H NEGATIVE Urine RBC 0-2 /HPF Urine WBC NONE /HPF Urine Squamous Epithelial Cells 0-2 /HPF Urine Crystals NONE /LPF Urine Bacteria NEGATIVE /HPF Urine Casts NONE /LPF Urine Mucus NEGATIVE /LPF Urine Culture Indicated NO (JAMES EPSTEIN MD) Medications Given in ED Current Medications Medications Dose Ordered Sig/Sharad Route Start Time Stop Time Status Last Admin Dose Admin Magnesium Sulfate 50 ml @ 25 mls/hr ONCE ONCE IV 02/01/23 12:30 02/01/23 14:29 DC 02/01/23 12:56 25 MLS/HR Potassium Chloride 40 meq ONCE ONCE PO 02/01/23 12:30 02/01/23 12:31 DC 02/01/23 12:43 40 MEQ Potassium Chloride 50 ml @ 50 mls/hr ONCE ONCE IV 02/01/23 12:30 02/01/23 13:29 DC 02/01/23 12:56 50 MLS/HR (JAMES EPSTEIN MD) Vital Signs/I&O 02/01/23 02/01/23 02/01/23 02/01/23 11:33 15:40 15:48 15:48 Temp 38.0 Pulse 75 75 82 Resp 16 16 20 B/P (MAP) 161/81 (107) 163/85 144/76 (98) Pulse Ox 98 98 98 O2 Delivery Room Air Room Air Room Air Room Air (JAMES EPSTEIN MD) Progress Progress Note : Progress Note Patient seen and evaluated, resting comfortably in bed, no acute distress. He is on exam and symptoms, workup initiated including CBC, CMP, magnesium, CK, EKG, chest x-ray, CT head and neck, x-ray of the left shoulder and left humerus. 1223 labs and imaging reviewed. CBC grossly normal. CMP shows decreased potassium 3.0. Decreased magnesium 1.2. Urinalysis negative for infection. Does show 3+ ketones. CT head and neck shows no acute intracranial process. Cervical spinal degenerative disease with no acute fracture or dislocation. Low-density nodule involving the left thyroid lobe. Chest x-ray shows no acute findings. Humerus x-ray shows no acute bony abnormality. Shoulder x-ray shows no acute bony abnormality. Potassium and magnesium replacement ordered. 1 L of IV fluids ordered. Staff stated that patient was rather confused when taking medication. She seemed to not understand what the nurse was doing and she forgot that the nurse was giving her medication within a very short time. 1424 patient still seems confused after fluids and potassium and magnesium. Patient got up from the bed while hooked up to the monitor and IV fluids when there was no family at bedside. She was able to state that she was in the hospital when I asked, but she said that she had gotten up to figure out what the monitor was. Family had returned and stated that they had told her multiple times what the monitor was. Family states that patient seems slower to respond, that she is not as sharp as normal. This confusion is new onset since . Due to new confusion, I called and spoke with Dr. Cantu, hospitalist, regarding admission. He agrees to admit patient. He will place admission orders. Plan of care discussed with patient and family. They agree to admission. (ISADORA FERRO APRN) Initial ECG Impression Date: Feb 01, 2023 Initial ECG Impression Time: 12:38 Initial ECG Rate: 67 Initial ECG Rhythm: Normal Sinus, PVC Initial ECG Intervals: Normal Initial ECG Impression: Nonspecific Changes Initial ECG Comparisson: Unchanged (ISADORA FERRO APRN) Diagnostic Imaging Diagonstic Imaging: CT Plain Films/CT/US/NM/MRI: c-spine, head Comments [facility], [place] NAME: MANDY GÓMEZ [facility] REC#: [id number] PT STATUS: REG ER : 1935 PHYSICIAN: ISADORA FERRO APRN ADMIT DATE: 02/01/23/ER Draft Date of Exam:02/01/23 CT HEAD/CERVICAL SPINE WO Clinical Indication: Patient is status post fall. Patient family reports patient found on floor at approximately 1000 hours this morning. Exam: Axial Head CT without IV contrast with sagittal and coronal reformations. Axial CT scan of the cervical spine with sagittal and coronal reformations. Auto Exposure Controls were utilized during the CT exam to meet ALARA standards for radiation dose reduction. Comparison: CT scan of the head and cervical spine without contrast dated 11/02/2021. Findings: Head CT: There is no evidence of acute cerebral infarct, intracranial hemorrhage, or gross mass effect. The brain parenchymal volume appears appropriate for patient's age. There is no significant change to the chronic small vessel ischemic disease. There is normal velasquez-white matter distinction. There is no significant midline shift or herniation. There is no evidence of hydrocephalus. The basal cisterns are unremarkable. The skull, extracranial soft tissue, and orbits are unremarkable. There is minimal fluid involving the right maxillary sinus. Temporal bones show no significant abnormality. Cervical spine: There is no acute cervical spine fracture or dislocation. There is stable cervical spine degenerative disease or vertebral body spurs and facet arthropathy. There is right curvature the thoracic spine partially visualized. There is an 8 mm low-density nodule involving left thyroid lobe. Visualized upper lung whitehead are clear. Impression: 1: Stable CT scan of the brain with no interval evidence of acute intracranial process. There is no skull fracture. 2: There is cervical spine degenerative disease with no acute fracture or dislocation. 3: There is a low-density nodule involving left thyroid lobe. Nonemergent thyroid ultrasound would better evaluate. Dictated on workstation # [id number] Dict: 02/01/23 1222 Trans: 02/01/23 1229 CVB [id number] Interpreted by: BECKY GA MD Electronically signed by: Yaya Imaging: Xray Plain Films/CT/US/NM/MRI: chest Comments [facility] [place], [place] NAME: MANDY GÓMEZ [facility] REC#: [id number] PT STATUS: REG ER : 1935 PHYSICIAN: ISADORA FERRO APRN ADMIT DATE: 02/01/23/ER Draft Date of Exam:02/01/23 CHEST 1 VIEW, AP/PA ONLY CLINICAL INDICATIONS: Patient complains of fall. Patient found on floor at approximately 0200 hours this morning. A small drawer was found laying on top of her. EXAM: Portable chest x-ray upright view. COMPARISON: Chest x-ray dated 11/02/2021. FINDINGS: Lungs/pleura: There is slight increased elevation right hemidiaphragm. Lungs are clear. There is no pneumothorax. There is no pleural effusion. Mediastinum: Unremarkable. Pulmonary vasculature: Unremarkable. Heart: Unremarkable. Bones/extrathoracic soft tissue: There are hypertrophic spurs involving the thoracic spine. Surgical clips are seen overlying the right upper quadrant which could be related to cholecystectomy changes. IMPRESSION: 1: There is no radiographic evidence of acute cardiopulmonary process. There is no fracture seen on this exam. Dictated on workstation # [id number] Dict: 02/01/23 1252 Trans: 02/01/23 1255 CVB [id number] Interpreted by: BECKY GA MD Electronically signed by: Diagonstic Imaging: Xray Plain Films/CT/US/NM/MRI: other (humerus) Comments [facility] [place] NAME: MANDY GÓMEZ [facility] REC#: [id number] PT STATUS: ADM Karan : 1935 PHYSICIAN: ISADORA FERRO APRN ADMIT DATE: 02/01/23 Signed Date of Exam:02/01/23 HUMERUS, LEFT, 2 VIEWS Indication: Fall with left arm injury and left arm pain. Time of Exam: 12:32 PM 2 views of the left humerus demonstrate normal alignment at the shoulder and elbow. The humerus appears intact. No fractures are seen. Impression: No acute bony abnormality is detected. Dictated by: Dictated on workstation # [id number] Dict: 02/01/23 1300 Trans: 02/01/23 1610 CVB [id number] Interpreted by: SIVAKUMAR RAY MD Electronically signed by: SIVAKUMAR RAY MD 02/01/23 1615 Diagonstic Imaging: Xray Plain Films/CT/US/NM/MRI: other (shoulder) Comments [facility] [place] NAME: MANDY GÓMEZ [facility] REC#: [id number] PT STATUS: ADM Karan : 1935 PHYSICIAN: ISADORA FERRO APRN ADMIT DATE: 02/01/23 Signed Date of Exam:02/01/23 SHOULDER, LEFT, 3 VIEWS Indication: Left shoulder pain. Time of Exam: 12:31 PM 3 views of the left shoulder demonstrate normal glenohumeral and acromioclavicular alignment. Acromiohumeral space is normal. No fracture dislocation is identified. Impression: No acute bony abnormality is detected. Dictated by: Dictated on workstation # [id number] Dict: 02/01/23 1259 Trans: 02/01/23 1616 CVB [id number] Interpreted by: SIVAKUMAR RAY MD Electronically signed by: SIVAKUMAR RAY MD 02/01/23 1616 (ISADORA FERRO APRN) Departure Communication (Admissions) Time/Spoke to Admitting Phy: 14:24 Dr. Cantu, hospitalist, see progress note. (ISADORA FERRO APRN) Impression Primary Impression: Confusion Additional Impressions: Hypokalemia Hypomagnesemia Fall Thyroid nodule Disposition: ADMITTED INPATIENT Condition: Stable Admissions Decision to Admit Reason: Admit from ER (General) Decision to Admit/Date: Feb 01, 2023 Time/Decision to Admit Time: 14:24 (ISADORA FERRO APRN) Departure-Patient Inst. Referrals: HALLEY WALKER MD (PCP/Family) Primary Care Physician ATTENDING PHYSICIAN NOTE: I was physically present as attending physician in the emergency department during the care of this patient. I briefly discussed the lab findings, clinical presentation, and approach to care with Isadora Ferro NP. I did not personally interview or examine this patient. I was not otherwise directly involved in the decision making or delivery of care for this patient. (JAMES EPSTEIN MD) ISADORA FERRO APRN Feb 01, 2023 11:57 JAMES EPSTEIN MD Feb 01, 2023 18:44
[2023-02-01 12:02] LABS: BASOPHILS % (AUTO) 0 % (0-10); EOSINOPHILS % (AUTO) 0 % (0-10); HEMATOCRIT 39 % (35-52); LYMPHOCYTES % (AUTO) 22 % (12-44); MEAN CORPUSCULAR HEMOGLOBIN 32 pg (25-34); MEAN CORPUSCULAR HGB CONC 34 g/dL (32-36); MEAN CORPUSCULAR VOLUME 95 fL (80-99); MEAN PLATELET VOLUME 10.1 fL (9.0-12.2); MONOCYTES # (AUTO) 0.6 10^3/uL (0.0-1.0); MONOCYTES % (AUTO) 6 % (0-12); NEUTROPHILS # (AUTO) 6.5 10^3/uL (1.8-7.8); NEUTROPHILS % (AUTO) 71 % (42-75); PLATELET COUNT 237 10^3/uL (130-400); WHITE BLOOD COUNT 9.2 10^3/uL (4.3-11.0)
[2023-02-01 12:03] LABS: ALBUMIN 3.8 GM/DL (3.2-4.5)
[2023-02-01 12:04] LABS: CALCIUM 8.8 MG/DL (8.5-10.1)
[2023-02-01 12:05] LABS: TOTAL PROTEIN 7.1 GM/DL (6.4-8.2)
[2023-02-01 12:07] LABS: BILIRUBIN,TOTAL 0.6 MG/DL (0.1-1.0)
[2023-02-01 12:09] LABS: CREATININE SERUM 0.8 MG/DL (0.60-1.30)
[2023-02-01 12:11] LABS: CLARITY,URINE CLEAR; COLOR,URINE YELLOW; PH,URINE 6.5 (5-9)
[2023-02-01 12:12] LABS: BACTERIA,URINE NEGATIVE /HPF; BILIRUBIN,URINE NEGATIVE (NEGATIVE); GLUCOSE, URINE (UA) TRACE (NEGATIVE); KETONES,URINE 3+ (NEGATIVE); LEUKOCYTE ESTERASE ,URINE NEGATIVE (NEGATIVE); NITRITE,URINE NEGATIVE (NEGATIVE); PROTEIN,URINE 1+ (NEGATIVE); RBC,URINE 0-2 /HPF; SQUAMOUS EPITHELIAL CELL,UR 0-2 /HPF
[2023-02-01 12:12] LABS: MAGNESIUM 1.2 MG/DL (1.6-2.4)
--- NOTE | 2023-02-01 12:29 | Diagnostic Imaging Report ---
Clinical Indication: Patient is status post fall. Patient family reports patient found on floor at approximately 1000 hours this morning. Exam: Axial Head CT without IV contrast with sagittal and coronal reformations. Axial CT scan of the cervical spine with sagittal and coronal reformations. Auto Exposure Controls were utilized during the CT exam to meet ALARA standards for radiation dose reduction. Comparison: CT scan of the head and cervical spine without contrast dated 11/02/2021. Findings: Head CT: There is no evidence of acute cerebral infarct, intracranial hemorrhage, or gross mass effect. The brain parenchymal volume appears appropriate for patient's age. There is no significant change to the chronic small vessel ischemic disease. There is normal velasquez-white matter distinction. There is no significant midline shift or herniation. There is no evidence of hydrocephalus. The basal cisterns are unremarkable. The skull, extracranial soft tissue, and orbits are unremarkable. There is minimal fluid involving the right maxillary sinus. Temporal bones show no significant abnormality. Cervical spine: There is no acute cervical spine fracture or dislocation. There is stable cervical spine degenerative disease or vertebral body spurs and facet arthropathy. There is right curvature the thoracic spine partially visualized. There is an 8 mm low-density nodule involving left thyroid lobe. Visualized upper lung whitehead are clear. Impression: 1: Stable CT scan of the brain with no interval evidence of acute intracranial process. There is no skull fracture. 2: There is cervical spine degenerative disease with no acute fracture or dislocation. 3: There is a low-density nodule involving left thyroid lobe. Nonemergent thyroid ultrasound would better evaluate. Dictated by: Dictated on workstation # [id number]
[2023-02-01] MEDS ORDERED: POTASSIUM CHLORIDE 20 MEQ TABLET PO ONE (12:30)
[2023-02-01] MEDS ORDERED: NS IV 1000 ML 1,000 ML IV SCH (12:30)
[2023-02-01] MEDS ORDERED: MAGNESIUM 2 GM/50 ML IVPB 50 ML IV ONE (12:30)
[2023-02-01] MEDS ORDERED: POTASSIUM CL 10MEQ/50ML IVPB 50 ML IV ONE (12:30)
--- NOTE | 2023-02-01 12:56 | Diagnostic Imaging Report ---
CLINICAL INDICATIONS: Patient complains of fall. Patient found on floor at approximately 0200 hours this morning. A small drawer was found laying on top of her. EXAM: Portable chest x-ray upright view. COMPARISON: Chest x-ray dated 11/02/2021. FINDINGS: Lungs/pleura: There is slight increased elevation right hemidiaphragm. Lungs are clear. There is no pneumothorax. There is no pleural effusion. Mediastinum: Unremarkable. Pulmonary vasculature: Unremarkable. Heart: Unremarkable. Bones/extrathoracic soft tissue: There are hypertrophic spurs involving the thoracic spine. Surgical clips are seen overlying the right upper quadrant which could be related to cholecystectomy changes. IMPRESSION: 1: There is no radiographic evidence of acute cardiopulmonary process. There is no fracture seen on this exam. Dictated by: Dictated on workstation # [id number]
--- NOTE | 2023-02-01 13:00 | Diagnostic Imaging Report ---
Indication: Left shoulder pain. Time of Exam: 12:31 PM 3 views of the left shoulder demonstrate normal glenohumeral and acromioclavicular alignment. Acromiohumeral space is normal. No fracture dislocation is identified. Impression: No acute bony abnormality is detected. Dictated by: Dictated on workstation # [id number]
--- NOTE | 2023-02-01 13:01 | Diagnostic Imaging Report ---
Indication: Fall with left arm injury and left arm pain. Time of Exam: 12:32 PM 2 views of the left humerus demonstrate normal alignment at the shoulder and elbow. The humerus appears intact. No fractures are seen. Impression: No acute bony abnormality is detected. Dictated by: Dictated on workstation # [id number]
[2023-02-01 15:48] VITALS: BP 144/76
[2023-02-01] MEDS ORDERED: CALCIUM CARBONATE 500 MG CHEW TABLET PO PRN (16:00)
[2023-02-01] MEDS ORDERED: ENOXAPARIN 30 MG/0.3 ML SYRINGE SC SCH (16:00)
[2023-02-01] MEDS ORDERED: BISACODYL 10 MG SUPPOSITORY PR PRN (16:00)
[2023-02-01] MEDS ORDERED: ACETAMINOPHEN 325 MG TABLET PO PRN (16:00)
[2023-02-01] MEDS ORDERED: NS IV 500 ML 500 ML IV PRN (16:00)
[2023-02-01] MEDS ORDERED: ONDANSETRON INJECTION 4 MG/2 ML (SDV) IV PRN (16:00)
[2023-02-01] MEDS ORDERED: POTASSIUM CL 10MEQ/50ML IVPB 50 ML IV SCH (16:00)
[2023-02-01] MEDS ORDERED: MAGNESIUM 1 GM/100 ML IVPB 100 ML IV SCH (16:00)
[2023-02-01] MEDS ORDERED: LOPERAMIDE 2 MG CAPSULE PO PRN (16:00)
[2023-02-01] MEDS ORDERED: MELATONIN 3 MG TABLET PO PRN (16:00)
[2023-02-01] MEDS ORDERED: ANTACID SUSPENSION 30 ML UDC PO PRN (16:00)
[2023-02-01] MEDS ORDERED: LACTULOSE SYRUP 10GM/15ML 30ML UDC PO PRN (16:00)
[2023-02-01] MEDS ORDERED: MILK OF MAGNESIA 400 MG/5 ML 30 ML UDC PO PRN (16:00)
[2023-02-01] MEDS ORDERED: ONDANSETRON 4 MG ORAL DISSOLVE TABLET PO PRN (16:00)
[2023-02-01] MEDS ORDERED: POTASSIUM CHLORIDE 20 MEQ TABLET PO NR (16:15)
[2023-02-01] MEDS: LACTATED RINGERS 1,000 ML 1,000 ML IV SCH (17:00)
[2023-02-01] MEDS: MAGNESIUM 1 GM/100 ML IVPB 100 ML IV SCH ×4 (17:48→21:43)
[2023-02-01] MEDS: POTASSIUM CL 10MEQ/50ML IVPB 50 ML IV SCH ×4 (18:01→21:42)
[2023-02-01 19:52] VITALS: BP 154/79
[2023-02-01 20:09] VITALS: BP 157/78
[2023-02-01] MEDS: SENNOSIDES 8.6 MG TABLET PO SCH (20:37)
[2023-02-01] MEDS: DOCUSATE SODIUM 100 MG CAPSULE PO SCH (20:37)
[2023-02-01] MEDS: GABAPENTIN 100 MG CAPSULE PO SCH (20:37)
[2023-02-01 23:41] VITALS: BP 147/79
[2023-02-02] MEDS: LACTATED RINGERS 1,000 ML 1,000 ML IV SCH ×2 (02:06→05:49)
[2023-02-02 03:59] VITALS: BP 164/80
[2023-02-02 05:55] LABS: BASOPHILS % (AUTO) 1 % (0-10); EOSINOPHILS # (AUTO) 0.1 10^3/uL (0.0-0.3); EOSINOPHILS % (AUTO) 2 % (0-10); HEMATOCRIT 36 % (35-52); HEMOGLOBIN 11.9 g/dL (11.5-16.0); LYMPHOCYTES # (AUTO) 1.8 10^3/uL (1.0-4.0); LYMPHOCYTES % (AUTO) 33 % (12-44); MEAN CORPUSCULAR HEMOGLOBIN 32 pg (25-34); MEAN CORPUSCULAR HGB CONC 33 g/dL (32-36); MEAN CORPUSCULAR VOLUME 96 fL (80-99); MEAN PLATELET VOLUME 9.9 fL (9.0-12.2); MONOCYTES # (AUTO) 0.3 10^3/uL (0.0-1.0); MONOCYTES % (AUTO) 5 % (0-12); NEUTROPHILS # (AUTO) 3.1 10^3/uL (1.8-7.8); NEUTROPHILS % (AUTO) 58 % (42-75); PLATELET COUNT 187 10^3/uL (130-400); WHITE BLOOD COUNT 5.4 10^3/uL (4.3-11.0)
[2023-02-02] MEDS ORDERED: POTASSIUM BICARB 20 MEQ effervescent TABLET PO SCH (06:00)
[2023-02-02] MEDS ORDERED: POTASSIUM CL 10MEQ/50ML IVPB 50 ML IV SCH (06:00)
[2023-02-02] MEDS ORDERED: POTASSIUM CHLORIDE 20 MEQ TABLET PO SCH (06:00)
[2023-02-02] MEDS ORDERED: MAGNESIUM 1 GM/100 ML IVPB 100 ML IV SCH (06:00)
[2023-02-02 06:02] LABS: POTASSIUM 3.3 MMOL/L (3.6-5.0)
[2023-02-02 06:03] LABS: CALCIUM 8.4 MG/DL (8.5-10.1)
[2023-02-02 06:07] LABS: CREATININE SERUM 0.74 MG/DL (0.60-1.30)
[2023-02-02 06:10] LABS: MAGNESIUM 2.3 MG/DL (1.6-2.4)
[2023-02-02] MEDS ORDERED: POTASSIUM CHLORIDE 20 MEQ TABLET PO ONE ×2 (06:15→11:00)
[2023-02-02 07:23] VITALS: BP 172/84
[2023-02-02] MEDS: GABAPENTIN 100 MG CAPSULE PO SCH (08:57)
[2023-02-02] MEDS ORDERED: LOSARTAN 100 MG TABLET PO SCH (09:00)
[2023-02-02] MEDS ORDERED: ISOSORBIDE MONONITRATE 30 MG TABLET PO SCH (09:00)
--- NOTE | 2023-02-02 09:01 | Physical Therapy Evaluation ---
PT Evaluation-General Medical Diagnosis Admission Date Feb 01, 2023 at 15:29 Medical Diagnosis: confusion/hypokalemia/hypomag Onset Date: Feb 01, 2023 Therapy Diagnosis Therapy Diagnosis: debility Height/Weight Height (Feet): 5 Height (Inches): 5.00 Weight (Pounds): 203 Precautions Precautions/Isolations: Fall Prevention, Standard Precautions Weight Bear Status Weight Bearing/Tolerated Left Lower Extremity: Left Weight Bearing/Tolerated Referral Physician: Alondra Reason for Referral: Evaluation/Treatment Medical History Pertinent Medical History: DM Current History EMS secondary to a fall Reviewed History: Yes Social History Home: Single Level Current Living Status: Alone Entry Into Home: Level Entry (per patient) Prior Prior Level of Function SCALE: Activities may be completed with or without assistive devices. 8-Bgyspvgsvy-ktqdupr completes the activity by him/herself with no assistance from a helper. 5-Set-up or Clean-up Assistance-helper sets up or cleans up; patient completes activity. [place] assists only prior to or following the activity. 4-Supervision or Touching Assistance-helper provides verbal cues and/or touching/steadying and/or contact guard assistance as patient completes activity. Assistance may be provided throughout the activity or intermittently. 3-Partial/Moderate Assistance-helper does LESS THAN HALF the effort. [place] lifts, holds or supports trunk or limbs, but provides less than half the effort. 2-Substantial/Maximal Assistance-helper does MORE THAN HALF the effort. [place] lifts or holds trunk or limbs and provides more than half the effort. 6-Xbevbhuvz-fmedhb does ALL the effort. Patient does none of the effort to complete the activity. Or, the assistance of 2 or more helpers is required for the patient to complete the activity. If activity was not attempted, code reason: 7-Patient Refused. 9-Not Applicable-not attempted and the patient did not perform the activity before the current illness, exacerbation or injury. 10-Not Attempted due to Environmental Limitations-(lack of equipment, weather restraints, etc.). 88-Not Attempted due to Medical Conditions or Safety Concerns. Bed Mobility: 6 Transfers (B,C,W/C): 6 Gait: 6 Indoor Mobility (Ambulation): Independent Prior Devices Use: None PT Evaluation-Current Subjective Patient agrees to PT. ROM/Strength ROM Lower Extremities bilateral LE WFL Strength Lower Extremities 4/5 grossly bilateral LE all planes Integumentary/Posture Bowel Incontinence: No Bladder Incontinence: No Posture WFL Neuromuscular (Tone, Coordination, Reflexes) grossly intact Sensory Vision: Functional Hearing: Functional Transfers Lying to Sitting/Side of Bed(Q: 6 Sit to Stand (QC): 6 Chair/Gpi-ip-Mdogo Xfer(QC): 6 dons socks independently Gait Mode of Locomotion: Walk Anticipated Mode of Locomotion: Walk Walk 10 feet (QC): 6 Walk 50 ft with 2 Turns(QC): 6 Walk 150 ft (QC): 6 Distance: 300' Gait Assistive Device: None Comments/Gait Description safe and functional with no deviation Balance Sitting Static: Normal Sitting Dynamic: Normal Standing Static: Normal Standing Dynamic: Normal Assessment/Needs Patient is currently at independent LOF with all gross motor skills and does not require skilled PT intervention at this time. Rehab Potential: Fair PT Plan Treatment/Plan Treatment Plan: Discontinue PT Treatment Duration: Feb 02, 2023 Frequency: 1 time per week Estimated Hrs Per Day: .25 hour per day Patient and/or Family Agrees t: Yes Time Time In: 812 Time Out: 822 DATE: Feb 02, 2023 Total Billed Treatment Time: 10 Total Billed Treatment 1 visit EVModC 10 min SALEEM BULLARD PT Feb 02, 2023 09:01
[2023-02-02] MEDS: SENNOSIDES 8.6 MG TABLET PO SCH (09:06)
[2023-02-02] MEDS: DOCUSATE SODIUM 100 MG CAPSULE PO SCH (09:06)
[2023-02-02 11:34] VITALS: BP 167/85
--- NOTE | 2023-02-02 12:51 | D/C HH Face to Face Order ---
D/C Face to Face Orders Instructions for Patient Via [facility], Patient Instructions/FollowUp: Vale one week Physician to follow Patient: Vale Discharge Diet for Home: No Restrictions Patient Data-Allergies,Ht & Wt Patient Allergies: Coded Allergies: No Known Drug Allergies (Unverified , 03/12/13) Height (Feet): 5 Height (Inches): 5.00 Weight (Pounds): 203 Home Health Need/Face to Face Date of Face to Face: Feb 02, 2023 Clinical Findings: Generalized weakness and fatigue, Instability, Muscle weakness, Unsteady gait I have seen Pt [id number]: Yes Discharged To: Home Diagnosis/Conditions: Debility Hypokalemia Hypomagnesemia Problems/Diagnosis/Condition: (1) Fall (2) Hypokalemia (3) Hypomagnesemia Patient is Homebound due to: Dean fall risk due to instabilty, Muscle weakness Homebound Status Due to the above stated illness, injury or surgical procedure (medical condition or diagnosis) and associated clinical findings, the patient is homebound because of his/her inability to leave home except with aid of a supportive device and/or person AND leaving the home requires a considerable and taxing effort or is medically contraindicated. Pt req the following assistanc: Aid of another person Home Health Nursing Orders Home Health Services Order: Nursing Services, 911 Operator-Evaluate & Treat, Physical Therapy-Evaluate & Treat Home Health Infusion Therapy Line Start Date: Feb 01, 2023 Therapy Orders Therapy Orders: OT (must have SN or PT order), Physical Therapy Therapy Specific Orders: Eval assistive deivces, Teach enviro modifications/safety, Gait training, Increase strength/endurance Certify Stmt I certify that this patient is under my care and that I, a nurse practitioner or a physician; a sociology research assistant working with me, had a face to face encounter that - meets the physician face to face encounter requirements with this patient as dated. YOHANA COLE MD Feb 02, 2023 12:51
[2023-02-02] MEDS ORDERED: GABA300C PO (13:03)
[2023-02-02] MEDS ORDERED: MTP100TCR PO (13:03)
[2023-02-02] MEDS ORDERED: ATOR20TA66 PO (13:20)
[2023-02-02] MEDS ORDERED: ISOS30TA82 PO (13:20)
[2023-02-02] MEDS ORDERED: LINA5TAB PO (13:20)
[2023-02-02 15:21] VITALS: BP 167/85
[2023-02-02] MEDS ORDERED: ENOXAPARIN 40 MG/0.4 ML SYRINGE SC SCH (17:00)
--- NOTE | 2023-02-02 20:22 | Short Stay Summary-Hospitalist ---
History of Present Illness HPI/Chief Complaint Leah Banerjee is an 87 year old female who was admitted after a fall. She had reportedly been confused yesterday. She denies any confusion. She has been having some diarrhea. She denies any other issues. She reports eating and drinking well. She denies fevers and chills. She denies chest pain and shortness of breath. She denies abdominal pain. She wants to go home today. Source: patient Exam Limitations: no limitations Date Seen 02/02/23 Time Seen by a Provider: 12:30 Attending Physician Moncho Collazo MD PCP Admitting Physician: Yohana Cole MD Attending Physician: Yohana Cole MD Referring Physician Date of Admission Feb 01, 2023 at 15:29 Home Medications & Allergies Home Medications Reviewed patient Home Medication Reconciliation performed by pharmacy medication reconciliations technician chemical cleaning and/or nursing. Patients Allergies have been reviewed. Allergies Allergies Coded Allergies No Known Drug Allergies ([id number]/31/13) Past Odilruf-Ludnoi-Ugcmtf Hx Patient Social History Tobacco Use?: Yes Tobacco type used: Cigarettes Smoking Status: Former Smoker Use of E-Cig and/or Vaping dev: No Substance use?: No Alcohol Use?: No Pt feels they are or have been: No Immunizations Up To Date Date of Influenza Vaccine: Dec 11, 2012 First/Initial COVID19 Vaccinat: YES Second COVID19 Vaccination Ovidio: YES Tetanus Booster (TDap): Unknown Date of Pneumonia Vaccine: Jul 03, 2009 Current Status Advance Directives: No Communicates: Verbally Primary Language: Gambian Preferred Spoken Language: Gambian Past Medical History Degenerate Disk Disease Diabetes, Non-Insulin dep Anxiety Family Medical History No Pertinent Family Hx Review of Systems Constitutional: no symptoms reported Respiratory: no symptoms reported Cardiovascular: no symptoms reported Gastrointestinal: no symptoms reported Physical Exam Physical Exam Vital Signs Vital Signs - First Documented 02/01/23 11:33 Temp 38.0 Pulse 75 Resp 16 B/P (MAP) 161/81 (107) Pulse Ox 98 O2 Delivery Room Air Capillary Refill : Less Than 3 Seconds Height, Weight, BMI Height: 5'5.00" Weight: 203lbs. oz. 92.271462ns; 26.70 BMI Method:Estimated General Appearance: No Apparent Distress, WD/WN HEENT: PERRL/EOMI, Pharynx Normal, Other (left mandibular tenderness) Neck: Normal Inspection, Non Tender, Supple Respiratory: Lungs Clear, No Respiratory Distress Cardiovascular: Regular Rate, Rhythm, No Murmur Gastrointestinal: Normal Bowel Sounds, Non Tender, Soft Extremity: Normal Inspection, No Pedal Edema Neurologic/Psychiatric: Alert, Normal Mood/Affect Skin: Normal Color, Warm/Dry Results Results/Procedures Labs Laboratory Tests 02/01/23 11:35 02/02/23 05:00 Patient resulted labs reviewed. Imaging: Reviewed Imaging Report Short Stay Diagnosis Discharge Diagnosis-Short Stay Admission Diagnosis Fall, hypokalemia, hypomagnesemia Final Discharge Diagnosis Fall, hypokalemia, hypomagnesemia Conclusion Plan Fall Hypokalemia Hypomagnesemia Thyroid nodule K and Mg replaced and improved Worked with PT and was found to be safe and independent Set up home health care for in home therapy CT neck with 8mm low-density left thyroid lobe nodule You will likely need an outpatient thyroid ultrasound Follow up with Dr. Collazo in about a week Diagnosis/Problems Diagnosis/Problems (1) Fall Status: Acute Qualifiers: Qualified Codes: W19.XXXA - Unspecified fall, initial encounter (2) Hypokalemia Status: Acute (3) Hypomagnesemia Status: Acute (4) Thyroid nodule Status: Acute YOHANA COLE MD Feb 02, 2023 20:22
== END 2023-02-02 12:48 | disposition home or self-care (01) ==
LOC: EDUNIT# 11:32 → ER 11:33 → UNDOADMOB 15:29 → 4TH 15:29 → UNDODISOB 02-02 12:48
PROVIDERS: ADMIT Internal Medicine; ATTEND Internal Medicine
DX: E87.6 Hypokalemia (principal); E83.42 Hypomagnesemia; E04.1 Nontoxic single thyroid nodule; R53.81 Other malaise; W19.XXXA Unspecified fall, initial encounter
CPT/HCPCS: 51701; 70450; 71045; 72125; 73030; 73060; 80048; 80053; 81000; 82550; 83735 ×2; 84443; 85025 ×2; 93005; 93041; 96366; 96372; 96376; 97162; 99284; G0378; 36415

== ENCOUNTER 2023-02-04 11:51 | Emergency (ER) | payer MEDICARE ==
[~2023-02-04] VITALS: Ht 165 cm; Wt 72.0 kg
[~2023-02-04 11:51] MED LIST changes: +GABA300C PO; +ISOS30TA82 PO; +LINA5TAB PO; +MTP100TCR PO
--- NOTE | 2023-02-04 12:16 | ED GU-Female ---
General Chief Complaint: - Reproductive Stated Complaint: JOVEL WHEN URINATING Source: patient Exam Limitations: no limitations History of Present Illness Date Seen by Provider: Feb 04, 2023 Time Seen by Provider: 12:15 Initial Comments Patient is a 87-year-old female who presents ED with burning with urination. She states she has had frequent urination and pain and discomfort over the past 3 to 4 days. She states she was discharge a few days ago from the hospital secondary to abnormal electrolytes. She states she has been getting around at home without any difficulties. She is eating and drinking. Family at bedside noted a urine with her urine. History of frequent urinary tract infections. She is not currently taking any oral antibiotics. She denies chest pain, shortness of breath, Ryan pain vomit, diarrhea, fever, chills. Family denies of any change in mental status at home. Since she has been discharged she is doing much better. They are requesting a urinalysis as her concerned that she may have an infection. Allergies and Home Medications Allergies Coded Allergies: No Known Drug Allergies (Unverified , 03/12/13) Patient Home Medication List Home Medication List Reviewed: Yes Atorvastatin Calcium (Atorvastatin Calcium) 20 Mg Tablet, 20 MG PO DAILY, (Reported) Entered as Reported by: MANI REYES on 02/02/23 1320 Cefdinir (Cefdinir) 300 Mg Capsule, 300 MG PO BID Prescribed by: JON HERNANDEZ on 02/04/23 1242 Gabapentin (Neurontin) 300 Mg Capsule, 300 MG PO BID, (Reported) Entered as Reported by: MANI REYES on 02/02/23 1303 Isosorbide Mononitrate (Isosorbide Mononitrate ER) 30 Mg Tab.er.24h, 30 MG PO DAILY, (Reported) Entered as Reported by: MANI REYES on 02/02/23 1320 Linagliptin (Tradjenta) 5 Mg Tablet, 5 MG PO DAILY, (Reported) Entered as Reported by: MANI REYES on 02/02/23 1320 Metformin Hcl (Metformin 500 Mg) 500 Mg Tablet, 500 MG PO BID WITH MEALS, (Reported) Entered as Reported by: NUZHAT DAWSON on 07/03/13 1042 Metoprolol Succinate (Metoprolol Succinate) 100 Mg Tab.er.24h, 100 MG PO DAILY, (Reported) Entered as Reported by: MANI REYES on 02/02/23 1303 Discontinued Medications Alprazolam (Xanax) 0.5 Mg Tablet, 0.5 MG PO BID PRN for ANXIETY, (Reported) Discontinued Reason: No Longer Taking Entered as Reported by: NUZHAT DAWSON on 07/03/13 1042 Aspirin ([place] Aspirin) 81 Mg Tablet.dr, 162 MG PO DAILY, (Reported) Discontinued Reason: No Longer Taking Entered as Reported by: NUZHAT DAWSON on 07/03/13 1042 Atorvastatin Calcium (Atorvastatin Calcium) 20 Mg Tablet, 10 MG PO HS, (Reported) Discontinued Reason: No Longer Taking Entered as Reported by: NUZHAT DAWSON on 07/03/13 1052 Duloxetine Hcl (Cymbalta) 30 Mg Capsule.dr, 30 MG PO BID, (Reported) Discontinued Reason: No Longer Taking Entered as Reported by: NUZHAT DAWSON on 07/03/13 1042 Estradiol (Estrace Vaginal Cream) 42.5 Gm Cream.appl, 0.5 GM VG TWICE WEEKLY, (Reported) Discontinued Reason: No Longer Taking Entered as Reported by: NUZHAT DAWSON on 07/03/13 1042 Estrogens Conjugated (Premarin Vag Cream) 45 Gm Cr, 0.5 GM VG TWICE WEEKLY, (Reported) Discontinued Reason: No Longer Taking Entered as Reported by: NUZHAT DAWSON on 07/03/13 1042 Hydrocodone Bit/Acetaminophen (Hydrocodone-Apap 10-325 Mg Tab) 1 Tab Tablet, 1-2 TAB PO Q8H PRN for PAIN, (Reported) Discontinued Reason: No Longer Taking Entered as Reported by: NUZHAT DAWSON on 07/03/13 1042 Losartan/Hydrochlorothiazide (Hyzaar 100-25 Tablet) 1 Tab Tablet, 1 TAB PO DAILY, (Reported) Discontinued Reason: No Longer Taking Entered as Reported by: NUZHAT DAWSON on 07/03/13 1042 Metoprolol Succinate (Toprol Xl 25MG) 25 Mg Tab.sr.24h, 25 MG PO DAILY, (Reported) Discontinued Reason: No Longer Taking Entered as Reported by: NUZHAT DAWSON on 07/03/13 1042 Multivitamin (Multi Vitamin Daily) 1 Each Tablet, 1 TAB PO DAILY, (Reported) Discontinued Reason: No Longer Taking Entered as Reported by: NUZHAT DAWSON on 07/03/13 1042 Naproxen Sodium (Aleve) 220 Mg Tablet, 220 MG PO DAILY, (Reported) Discontinued Reason: No Longer Taking Entered as Reported by: NUZHAT DAWSON on 07/03/13 104 Review of Systems Review of Systems Constitutional: No chills, No diaphoresis, No fever, No malaise, No weakness EENTM: No ear pain, No blurred vision, No double vision Respiratory: No cough, No dyspnea on exertion Cardiovascular: No chest pain Gastrointestinal: No abdominal pain, No diarrhea, No nausea, No vomiting Genitourinary: burning; denies discharge; dysuria, frequency Musculoskeletal: No back pain, No joint pain Skin: No change in color, No change in hair/nails All Other Systemes Reviewed Negative Unless Noted: Yes Past Mehrfwa-Jufnho-Kgenyu Hx Immunizations Up To Date First/Initial COVID19 Vaccinat: YES Second COVID19 Vaccination Ovidio: YES Third COVID19 Vaccination Date: YES Past Medical History Surgery/Hospitalization HX: hysterectomy choley Reproductive Disorders: No Degenerate Disk Disease Diabetes, Non-Insulin dep Anxiety Family Medical History No Pertinent Family Hx Physical Exam Vital Signs Vital Signs - First Documented 02/04/23 12:05 Temp 36.9 Pulse 80 Resp 16 B/P (MAP) 200/103 (135) Pulse Ox 95 O2 Delivery Room Air Capillary Refill : Height, Weight, BMI Height: 5'5.00" Weight: 203lbs. oz. 92.417221py; 26.70 BMI Method:Estimated General Appearance: WD/WN, no apparent distress HEENT: PERRL/EOMI, normal ENT inspection, TMs normal, pharynx normal Neck: non-tender, full range of motion, supple, normal inspection Cardiovascular: regular rate, rhythm, no edema, no gallop, no JVD Respiratory: chest non-tender, lungs clear, normal breath sounds, no respiratory distress, no accessory muscle use Gastrointestinal: normal bowel sounds, non tender, soft, no organomegaly Pelvic: normal external exam Back: normal inspection, no CVA tenderness Extremities: normal range of motion, non-tender, normal inspection, no pedal edema Neurologic/Psychiatric: day care home provider II-XII nml as tested, no motor/sensory deficits, alert, normal mood/affect, oriented x 3 Skin: normal color, warm/dry Progress/Results/Core Measures Suspected Sepsis SIRS Temperature: Pulse: Respiratory Rate: Blood Pressure / Mean: Results/Orders Lab Results Laboratory Tests Test 02/04/23 12:07 Range/Units Urine Color YELLOW Urine Clarity CLOUDY Urine pH 5.5 5-9 Urine Specific Emmalena >=1.030 1.016-1.022 Urine Protein 2+ H NEGATIVE Urine Glucose (UA) NEGATIVE NEGATIVE Urine Ketones NEGATIVE NEGATIVE Urine Nitrite POSITIVE H NEGATIVE Urine Bilirubin NEGATIVE NEGATIVE Urine Urobilinogen 0.2 < = 1.0 MG/DL Urine Leukocyte Esterase 1+ H NEGATIVE Urine RBC (Auto) 1+ H NEGATIVE Urine RBC 5-10 H /HPF Urine WBC >100 H /HPF Urine Crystals NONE /LPF Urine Bacteria LARGE H /HPF Urine Casts NONE /LPF Urine Mucus NEGATIVE /LPF Urine Culture Indicated YES My Orders Orders - JULIO HUNT Ua Culture If Indicated (02/04/23 11:56) Urine Culture (02/04/23 12:07) Ceftriaxone Iv/Im (Ceftriaxone Iv/Im) (02/04/23 12:45) Lidocaine 1% Inj 20 Ml (Xylocaine 1% Inj (02/04/23 12:45) Medications Given in ED Current Medications Medications Dose Ordered Sig/Sharad Route Start Time Stop Time Status Last Admin Dose Admin Ceftriaxone Sodium 1,000 mg ONCE ONCE IM 02/04/23 12:45 02/04/23 12:46 DC 02/04/23 12:49 1,000 MG Lidocaine HCl 2.1 ml ONCE ONCE INJ 02/04/23 12:45 02/04/23 12:46 DC 02/04/23 12:49 2.1 ML Vital Signs/I&O 02/04/23 02/04/23 02/04/23 12:05 12:36 13:03 Temp 36.9 Pulse 80 63 65 Resp 16 18 B/P (MAP) 200/103 (135) 174/83 (113) 179/97 Pulse Ox 95 92 95 O2 Delivery Room Air Room Air Room Air Capillary Refill : Departure Communication (PCP) Reviewed previous ER visits, H&P, lab testing. Patient was admitted 3 days ago discharged 2 days ago for confusion, hypokalemia and hypomagnesia. She had IV supplementation with improvement. According to son at bedside she has been doing quite well at home. No falls, confusion, vomiting, diarrhea or known fevers.According to son she has been doing much better since being discharged. Patient's only complaint is pain with urination. She is continue experiencing burning with urination sine her admission. Her urinalysis was negative for infection here in feb 01. They noted odor with her urine since discharge from our hospital. Vital signs remained stable. She is alert and orient x 3. Patient with a steady gait. Did discuss rechecking electrolytes but they did not want to proceed. They have a follow-up with Dr. Walker in the next few days. Did obtain a urinalysis which was positive for white blood cells and nitrites concerning for UTI. She did receive 1 g of Rocephin IM here. Will discharge with cefdinir for 10 days. Recommend recheck with urinalysis in 2 to 3 days. If any change in behavior such as increased confusion, vomiting, abdominal pain or worsening symptoms return back to ED. Impression Primary Impression: Urinary tract infection Disposition: HOME, SELF-CARE Condition: Stable Departure-Patient Inst. Decision time for Depature: 12:42 Referrals: HALLEY WALKER MD (PCP/Family) Primary Care Physician Patient Instructions: Urinary Tract Infection, Adult (DC) Add. Discharge Instructions: Need to follow-up your primary in the next 2 or 3 days for reevaluation. If any change in confusion, fever, lethargy to return back to ED. All discharge instructions reviewed with patient and/or family. Voiced understanding. Scripts Cefdinir (Cefdinir) 300 Mg Capsule 300 MG PO BID for 10 Days, #20 CAP Prov: JULIO HUNT 02/04/23 JULIO HUNT Feb 04, 2023 12:16
[2023-02-04 12:37] LABS: CLARITY,URINE CLOUDY; COLOR,URINE YELLOW; GLUCOSE, URINE (UA) NEGATIVE (NEGATIVE); PH,URINE 5.5 (5-9); PROTEIN,URINE 2+ (NEGATIVE)
[2023-02-04 12:38] LABS: BACTERIA,URINE LARGE /HPF; BILIRUBIN,URINE NEGATIVE (NEGATIVE); KETONES,URINE NEGATIVE (NEGATIVE); LEUKOCYTE ESTERASE ,URINE 1+ (NEGATIVE); NITRITE,URINE POSITIVE (NEGATIVE); WBC,URINE >100 /HPF
[2023-02-04] MEDS ORDERED: CEFD300C3 PO (12:42)
[2023-02-04] MEDS ORDERED: LIDOCAINE 1% INJ 20 ML VIAL INJ ONE (12:45)
[2023-02-04] MEDS ORDERED: cefTRIAXone 1,000 MG VIAL IV/IM IM ONE (12:45)
[2023-02-04 13:03] VITALS: BP 179/97
== END 2023-02-04 13:04 | disposition home or self-care (01) ==
LOC: EDUNIT# 11:51 → ER 11:53
DX: N39.0 Urinary tract infection, site not specified (principal)
CPT/HCPCS: 81000; 87077; 87088; 87186; 99284

== ENCOUNTER → 2023-02-20 | Outpatient (CLI) | payer MEDICARE ==
[~2023-02-20] MED LIST changes: +CEFD300C3 PO
--- NOTE | 2023-02-20 14:17 | Diagnostic Imaging Report ---
PROCEDURE: US Thyroid. TECHNIQUE: Multiple Real-time grayscale images were obtained of the thyroid in various projections. INDICATION: Thyroid nodule. COMPARISON: 02/01/2023. FINDINGS: Both thyroid lobes demonstrate smooth and homogenous background echotexture. Color flow Doppler demonstrates normal and symmetric vascularity bilaterally. The right lobe measures 3.5 cm in length, 1.3 cm AP, and 1.1 cm transverse. The left lobe measures 3.5 cm in length, 1.2 cm AP, and 0.9 cm transverse. The isthmus measures 0.2 cm. A solid, hypoechoic nodule is seen in the left lobe of the thyroid measuring 1.2 x 1.0 x 0.5 cm. There is peripheral vascularity. IMPRESSION: Nodule in the left lobe of the thyroid measuring up to 1.2 cm. Imaging characteristics are most consistent with a TI-RADS 3 nodule. Based on size criteria, followup in 12 months with thyroid ultrasound is recommended. Dictated by: Dictated on workstation # [id number]
== END ==
LOC: RAD 10:26
PROVIDERS: ATTEND Internal Medicine
DX: E04.1 Nontoxic single thyroid nodule (principal)
CPT/HCPCS: 76536